=== PATIENT | male | born 1990 | race African-American/Black ===

== ENCOUNTER 2018-10-12 04:28 | Inpatient (IN) | payer MEDICAID ==
[~2018-10-12] VITALS: Ht 175.3 cm; Wt 72.6 kg
[2018-10-12] MEDS ORDERED: SODIUM CHLORIDE 0.9% 1,000 ML IV ONE ×3 (04:53→08:49)
[2018-10-12] MEDS ORDERED: FAMOTIDINE 20MG/2ML VIAL IV STA (04:53)
[2018-10-12] MEDS ORDERED: ONDANSETRON HCL 4MG/2ML INJ IV STA ×2 (04:53→08:49)
[2018-10-12] MEDS ORDERED: KETOROLAC 30MG/ML VIAL IV STA (04:53)
[2018-10-12 05:06] LABS: BASOPHILS % 0.5 % (0.0-2.0); EOSINOPHILS % 0.3 % (0.0-5.0); HEMATOCRIT. 40.7 % (42.0-52.0); HEMOGLOBIN. 13.6 g/dL (14.0-18.0); LYMPHOCYTES % 42.1 % (20.0-50.0); MEAN CORPUSCULAR HEMOGLOBIN 28.8 pg (28.0-32.0); MEAN CORPUSCULAR VOLUME 86.4 fL (80.0-94.0); MEAN PLATELET VOLUME 8.8 fl (7.4-10.4); MONOCYTES % 10.2 % (2.0-8.0); NEUTROPHILS % 46.9 % (40.0-76.0); PLATELET 174 x1000/uL (130-400); RED BLOOD CELL COUNT 4.71 mill/uL (4.7-6.1); RED CELL DISTRIBUTION WIDTH 13.8 % (11.6-14.6)
[2018-10-12 05:13] LABS: CHLORIDE 109 mEq/L (98-107)
[2018-10-12 05:14] LABS: INR 1.1; PROTHROMBIN TIME 10.8 sec (9.6-11.0)
[2018-10-12] MEDS ORDERED: MORPHINE SULFATE 4 MG/ML CPJ (NOT FOR IM USE) IV STA ×2 (05:42→08:49)
[2018-10-12] MEDS ORDERED: DIPHENHYDRAMINE 50MG/ML VIAL IV ONE (06:15)
[2018-10-12] MEDS ORDERED: METOCLOPRAMIDE HCL 10MG/2ML VIAL IV ONE (06:15)
[2018-10-12] MEDS ORDERED: MAGNESIUM/ALUMINUM HYDROXIDE/SIMETHICONE 30ML UDC PO ONE (08:00)
[2018-10-12 08:16] LABS: CLARITY URINE CLEAR (CLEAR); COLOR URINE YELLOW (YELLOW); KETONES URINE TRACE (NEGATIVE); LEUKOCYTE ESTERASE URINE NEGATIVE (NEGATIVE); NITRITE URINE NEGATIVE (NEGATIVE); OCCULT BLOOD URINE NEGATIVE (NEGATIVE); PROTEIN URINE NEGATIVE (NEGATIVE); SPECIFIC GRAVITY URINE 1.016 (1.005-1.030); UROBILINOGEN URINE 0.2 E.U./dL (0.2-1.0)
[2018-10-12 09:16] LABS: *AMPHETAMINES SCREEN URINE NEGATIVE (NEGATIVE); *BARBITURATES SCREEN URINE NEGATIVE (NEGATIVE); CANNABINOID URINE SCREEN PRESUMTIVE POSITIVE (NEGATIVE); PHENCYCLIDINE URINE SCREEN NEGATIVE (NEGATIVE)
[2018-10-12 09:17] LABS: *BENZODIAZEPINES SCREEN URINE NEGATIVE (NEGATIVE); *COCAINE SCREEN URINE NEGATIVE (NEGATIVE); METHADONE URINE SCREEN NEGATIVE (NEGATIVE); OPIATES URINE SCREEN PRESUMTIVE POSITIVE (NEGATIVE)
[2018-10-12 12:00] VITALS: BP 147/107
[2018-10-12] MEDS ORDERED: KETOROLAC 30MG/ML VIAL IV PRN (13:15)
[2018-10-12 14:06] VITALS: BP 147/107
[2018-10-12] MEDS ORDERED: PROM-177 MT (14:23)
[2018-10-12] MEDS: METOCLOPRAMIDE HCL 10MG/2ML VIAL IV PRN ×2 (14:29→21:44)
[2018-10-12 16:00] VITALS: BP 153/98
[2018-10-12] MEDS ORDERED: MORPHINE SULFATE 2 MG/ML CPJ (NOT FOR IM USE) IV PRN ×2 (17:15→17:30)
[2018-10-12] MEDS: DEXT 5%/0.9% NACL 1,000 ML IV SCH ×2 (17:54→23:15)
[2018-10-12] MEDS: MORPHINE SULFATE 4 MG/ML CPJ (NOT FOR IM USE) IV PRN ×2 (18:12→22:18)
[2018-10-12 20:00] VITALS: BP 163/95
[2018-10-13] VITALS: BP 171/108
[2018-10-13] MEDS: MORPHINE SULFATE 4 MG/ML CPJ (NOT FOR IM USE) IV PRN ×4 (02:21→16:47)
[2018-10-13] MEDS: METOCLOPRAMIDE HCL 10MG/2ML VIAL IV PRN (03:53)
[2018-10-13 04:00] VITALS: BP 140/92
[2018-10-13] MEDS ORDERED: ENALAPRIL 2.5MG/2ML VIAL 2ML IV PRN (06:00)
[2018-10-13] MEDS ORDERED: ENALAPRIL 2.5MG/2ML VIAL 2ML IV SCH (06:00)
[2018-10-13 08:00] VITALS: BP 117/71
[2018-10-13 12:00] VITALS: BP 128/76
[2018-10-13] MEDS ORDERED: ENALAPRIL 1.25 MG in DEXTROSE 5% WATER 50 ML IV PRN (12:15)
[2018-10-13] MEDS ORDERED: ONDANSETRON HCL 4MG/2ML INJ IV PRN (15:30)
[2018-10-13 15:57] LABS: BASOPHILS % 0.2 % (0.0-2.0); EOSINOPHILS % 0.2 % (0.0-5.0); HEMATOCRIT. 39.4 % (42.0-52.0); HEMOGLOBIN. 13.3 g/dL (14.0-18.0); LYMPHOCYTES % 40.7 % (20.0-50.0); MEAN CORPUSCULAR HEMOGLOBIN 28.7 pg (28.0-32.0); MEAN CORPUSCULAR VOLUME 85.3 fL (80.0-94.0); MONOCYTES % 10.3 % (2.0-8.0); NEUTROPHILS % 48.6 % (40.0-76.0); PLATELET 202 x1000/uL (130-400); RED BLOOD CELL COUNT 4.62 mill/uL (4.7-6.1); RED CELL DISTRIBUTION WIDTH 13.3 % (11.6-14.6)
[2018-10-13 16:00] VITALS: BP 135/93
[2018-10-13 16:13] LABS: CHLORIDE 106 mEq/L (98-107)
[2018-10-13] MEDS ORDERED: POTASSIUM CHLORIDE 20MEQ TABLET SR PO NR (16:36)
[2018-10-13 19:58] VITALS: BP 117/71
== END 2018-10-13 20:00 | disposition home or self-care (01) | DRG 422 ==
LOC: ER 04:28 → 6EST 11:30 → ENRESERV 11:43
PROVIDERS: ADMIT Family Medicine; ATTEND Family Medicine
DX: E86.0 Dehydration (principal); N28.1 Cyst of kidney, acquired; F12.90 Cannabis use, unspecified, uncomplicated; Z60.2 Problems related to living alone; Z79.899 Other long term (current) drug therapy; Z87.440 Personal history of urinary (tract) infections
CPT/HCPCS: 36415; 74176; 80305; 83605; 96374; 99285; J1200; J1885; J2270; J2405; J2765; J3490; J7030; J7042